=== PATIENT | female | born 1980 | race Native Hawaiian/Other Pacific Islander ===

== ENCOUNTER 2017-02-03 09:23 | Outpatient (CLI) | payer BC ==
[2017-02-03 09:36] LABS: PLATELET COUNT 267 K/uL (152-353)
== END 2017-02-03 10:25 | disposition home or self-care (01) ==
LOC: LABW 09:23
PROVIDERS: Obstetrics & Gynecology
DX: R10.2 Pelvic and perineal pain (principal)
CPT/HCPCS: 85027

== ENCOUNTER 2019-04-10 22:41 | Emergency (ER) | payer OTHER ==
[~2019-04-10] VITALS: Ht 165.1 cm; Wt 72.6 kg
[2019-04-10 23:01] VITALS: TEMP 98.6
[2019-04-11 00:05] VITALS: BP 125/78
== END 2019-04-11 00:05 | disposition home or self-care (01) ==
LOC: ED 22:41
DX: M54.5 Low back pain (principal); S76.012A Strain of muscle, fascia and tendon of left hip, initial encounter; X50.9XXA Other and unspecified overexertion or strenuous movements or postures, initial encounter; Y92.129 Unspecified place in nursing home as the place of occurrence of the external cause
CPT/HCPCS: 99283; J1885

== ENCOUNTER 2023-02-03 16:54 | Outpatient (CLI) | payer OTHER | END 2023-02-03 20:49 | disposition home or self-care (01) | LOC: RAD 16:54 | PROVIDERS: ATTEND Internal Medicine | DX: M54.2 Cervicalgia (principal) ==